=== PATIENT | male | born 1950 | race Caucasian/White ===

== ENCOUNTER 2017-05-25 20:32 | Emergency (ER) | payer BC ==
[2017-05-25] MEDS ORDERED: Sodium Chloride 0.9% 1,000 ML IV SCH (23:00)
[2017-05-25] MEDS ORDERED: Piperacillin/Tazobactam 3.375 GM in Sodium Chloride 0.9% 100 ML IV SCH (23:00)
[2017-05-25] MEDS ORDERED: Piperacillin/Tazobactam 3.375 GM in Sodium Chloride 0.9% 100 ML IV ONE (23:12)
[2017-05-25] MEDS ORDERED: Clindamycin Phosphate 600 MG in Dextrose 5% in Water 50 ML IV ONE ×2 (23:21)
[2017-05-25 23:35] VITALS: BP 146/94
[2017-05-25] MEDS ORDERED: Clindamycin Phosphate 600 MG/4 ML SDV ONE (23:46)
--- NOTE | 2017-05-26 08:14 | ER ---
HISTORY OF PRESENT ILLNESS: A 66-year-old male who comes in with his with complaints of swelling and redness, as well as drainage, on his left foot that is getting worse. The patient was seen here in the clinic on Monday for a biopsy of his left leg just below the knee for questionable vasculitis, and he tells me that the doctor never really looked at his foot. He was not having much more symptoms at that time. The patient was started on Augmentin and prednisone, after the biopsy was done. He states, over the last couple of days, his symptoms have gotten worse. He is noticing a bad odour. The patient is not sure what to do. 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 The patient tells me he has very little feeling in either foot. He also has history of coronary artery disease. OBJECTIVE: GENERAL APPEARANCE: The patient is awake, alert, pleasant, and talkative. No obvious distress. VITAL SIGNS: Reviewed. He is currently afebrile. Pulse is 79, blood pressure 143/95. EXTREMITIES: Examining the left foot reveals significant swelling of the distal half of the foot. The foot is erythematous. There is a break in the skin involving the web space between the great toe and the second toe that carries through to the sole of the foot, and he has another opening involving the forefoot area proximal to the great toe. The lesions are weeping. It is quite odorous. The midfoot area is warm to touch. Light palpation around the wound sites reveals there is some mild crepitus present. The patient is not having any pain with palpation of the areas today. LAB AND X-RAYS: X-ray of the foot is obtained. There are some pockets of gas, which is a concern for gas gangrene. I am seeing just subtle of changes involving the great toe, which could be arthritis or could be early stage osteomyelitis. Dz: 1) Cellulitis left foot. 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 PLAN: At this point, I consulted with Kendall res habilitation assistant physician, who reviewed the x-rays plus pictures of the patient's foot and agrees there is obvious concern for gas gangrene here, and the patient needs to be transferred immediately for a surgical consult, as well as being started on additional antibiotics given IV. At this point, I consulted with Dr. Valdivia, hospitalist from [facility] in [place], who accepted the patient. He will be transferred by a fixed-wing aircraft, I believe, at this time. We will give the patient 1 dose of Zosyn and 1 dose of vancomycin IV. His left foot was covered with a pressure dressing and kept elevated while at our facility. I will dictate an addendum after the patient has left our facility. DOLORES/DES /[id number] MTDD
--- NOTE | 2017-05-26 10:08 | CR ---
DATE OF SERVICE: 05/25/17 CLINICAL DATA: infection. Possible Osteo. LEFT FOOT: There is marked soft tissue swelling of the first toe and adjacent to the metacarpophalangeal joint of the first toe. There is also gas density within the superficial soft tissues medial to the MP joint of the first toe consistent with a superficial ulceration or soft tissue emphysema. An infectious process is suspected. No lytic or blastic bone lesions. There are mild osteoarthritic changes involving multiple joints. No radiodense foreign bodies. [id number] [facility]
== END 2017-05-26 00:20 ==
LOC: LB.ED 20:32
DX: L03.116 Cellulitis of left lower limb (principal)
CPT/HCPCS: 73630; 87070; 87077; 87186; 87205; 96365; 96368; 97161; 97597; 99284; A0425; A0429; J3370; J7040; J7050

== ENCOUNTER → 2019-05-09 | Outpatient (CLI) | payer MEDICARE, BC ==
--- NOTE | 2019-05-09 17:24 | CR ---
Date of Service: 05/09/19 Clinical Data: S81.802S LEFT FOOT: Comparison is made to a prior exam dated 07/14/17. 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 No change in appearance from the prior exam. [id number] [facility]
== END ==
LOC: LB.DI 09:47
PROVIDERS: ATTEND Podiatrist Foot & Ankle Surgery
DX: S81.802S Unspecified open wound, left lower leg, sequela (principal); X58.XXXS Exposure to other specified factors, sequela; Z89.422 Acquired absence of other left toe(s)
CPT/HCPCS: 73630-LT

== ENCOUNTER 2020-02-05 08:47 | Emergency (ER) | payer MEDICARE, BC ==
[2020-02-05] MEDS ORDERED: Sodium Chloride 0.9% 10 ML Syringe FLUSH PRN (09:02)
--- NOTE | 2020-02-05 09:40 | EDM.PDOC ---
ED HPI GENERAL MEDICAL PROBLEM - General Chief Complaint: Abdominal Pain Stated Complaint: ABD PAIN Time Seen by Provider: 02/05/20 09:10 Source of Information: Reports: Patient History Limitations: Reports: No Limitations - History of Present Illness INITIAL COMMENTS - FREE TEXT/NARRATIVE: Onset of diffuse abdominal pain since Monday since moving to lower abdomen. Patient states he had diarrhea Monday and Monday, took imodium and that stopped the diarrhea. No BM since Monday. Decreased appetite, but thinks he has been drinking adequate amounts of water. Pain increased when lying down and improves with sitting up. Denies any CP, SOB, Blood in stools, N/V/D, CVA tenderness, urinary symptoms. He has not tried any OTC medications for the pain. It has been a constant pain, but patient is pain free since arriving in the ED. Patient was treated in November for pneumonia with clinamycin, levaquin and augmentin. Onset Date: 02/02/20 Duration: Constant Location: Reports: Abdomen Quality: Reports: Ache Severity: Mild Improves with: Reports: Other (sitting) Worsens with: Reports: Other (lying flat) Associated Symptoms: Reports: No Other Symptoms Bilateral Middle Abdominal Pain Score (Numeric/FACES): 4 - Related Data Allergies Allergy/AdvReac Type Severity Reaction Status Date / Time No Known Allergies Allergy Verified 02/05/20 08:56 Home Meds: Home Meds Aspirin 81 mg PO DAILY 05/25/17 [History] Clopidogrel [Plavix] 75 mg PO DAILY 05/25/17 [History] Metoprolol Succinate [Toprol XL] 200 mg PO DAILY 05/25/17 [History] atorvaSTATin [Lipitor] 80 mg PO BEDTIME 05/25/17 [History] Omeprazole 20 mg PO DAILY 12/12/19 [History] Famotidine 40 mg PO BID 02/05/20 [History] metroNIDAZOLE [Metronidazole] 500 mg PO TID 10 Days #30 tablet 02/05/20 [Rx] Past Medical History HEENT History: Reports: Impaired Vision Cardiovascular History: Reports: High Cholesterol, Hypertension, NH, Stents Other Cardiovascular History: Coronary Atherosclerosis Respiratory History: Reports: Pneumonia, Recurrent, Other (See Below) Other Respiratory History: SOB r/t new dx of pneumonia Gastrointestinal History: Reports: GERD Other Genitourinary History: Elevated PSA, Erectile Dysfunction Neurological History: Reports: Other (See Below) Other Neuro History: "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 Endocrine/Metabolic History: Reports: Obesity/BMI 30+ Dermatologic History: Reports: Other (See Below) Other Dermatologic History: Open wounds to L foot, unsure of origin/cause at this time - Past Surgical History Cardiovascular Surgical History: Reports: Coronary Artery Stent Social & Family History - Family History Family Medical History: Noncontributory Oncologic: Reports: Breast - Tobacco Use Smoking Status *Q: Never Smoker - Caffeine Use Caffeine Use: Reports: Coffee - Alcohol Use Days Per Week of Alcohol Use: 7 Number of Drinks Per Day: 1 Total Drinks Per Week: 7 - Recreational Drug Use Recreational Drug Use: No ED ROS GENERAL - Review of Systems Review Of Systems: See Below Constitutional: Reports: No Symptoms HEENT: Reports: No Symptoms Respiratory: Reports: No Symptoms Cardiovascular: Reports: No Symptoms Endocrine: Reports: No Symptoms GI/Abdominal: Reports: Abdominal Pain : Reports: No Symptoms Musculoskeletal: Reports: No Symptoms Skin: Reports: No Symptoms Neurological: Reports: Pre-Existing Deficit (bilateral feet toes amputation, BLE neuropathy) Psychiatric: Reports: No Symptoms Hematologic/Lymphatic: Reports: No Symptoms Immunologic: Reports: No Symptoms ED EXAM, GI/ABD - Physical Exam Exam: See Below Exam Limited By: No Limitations General Appearance: Alert, No Apparent Distress Head: Atraumatic Neck: Normal Inspection, Non-Tender, Full Range of Motion Respiratory/Chest: No Respiratory Distress, Lungs Clear, Normal Breath Sounds, Chest Non-Tender Cardiovascular: Normal Peripheral Pulses, No Edema, No JVD, No Murmur, Tachycardia GI/Abdominal Exam: Normal Bowel Sounds, Soft, Tender (Male) Exam: Hernia (known hiatial hernia per patient) Back Exam: Normal Inspection, Full Range of Motion. No: CVA Tenderness (R), CVA Tenderness (L) Extremities: Normal Inspection, Non-Tender, No Pedal Edema Neurological: Alert, Oriented, Sensory/Motor Deficit (BLE at baseline) Psychiatric: Normal Affect, Normal Mood Skin Exam: Warm, Dry, Intact Lymphatic: No Adenopathy Course - Vital Signs Last Recorded V/S: Last Vital Signs Temp 98.8 F 02/05/20 09:43 Pulse 93 02/05/20 10:59 Resp 18 02/05/20 10:59 BP 128/83 02/05/20 10:59 Pulse Ox 94 L 02/05/20 10:59 - Orders/Labs/Meds Orders: Active Orders 24 hr Category Date Time Status EKG Documentation Completion [RC] ASDIRECTED Care 02/05/20 09:29 Active Abdomen Pelvis wo Cont [CT] Stat Exams 02/05/20 09:24 Taken COMPREHENSIVE METABOLIC PN,CMP [CHEM] Stat Lab 02/05/20 09:01 Ordered LIPASE [CHEM] Stat Lab 02/05/20 09:25 Ordered UA RFX ARNOLD AND CULT IF INDIC [URIN] Stat Lab 02/05/20 09:01 Ordered Diatrizoate Elaine/Diatrizoate Na [Gastrografin 37%] Med 02/05/20 10:45 Ordered 30 ml PO . DIRECTED Sodium Chloride 0.9% [Saline Flush] Med 02/05/20 09:02 Active 10 ml FLUSH ASDIRECTED PRN Peripheral IV Insertion Adult [OM.PC] Routine Oth 02/05/20 09:02 Ordered Medication Orders Diatrizoate Meglum/Diatrizoate Sod (Gastrografin 37%) 30 ml PO . DIRECTED JESSICA Sodium Chloride (Saline Flush) 10 ml FLUSH ASDIRECTED PRN PRN Reason: Keep Vein Open Labs: Laboratory Tests 02/05/20 02/05/20 02/05/20 Range/Units 09:22 09:29 09:57 WBC 14.3 H D (4.0-11.0) K/uL RBC 5.22 (4.50-6.50) M/uL Hgb 18.1 H* (13.0-18.0) g/dL Hct 50.0 (40.0-54.0) % MCV 96 (76-96) fL MCH 34.7 H (27.0-32.0) pg MCHC 36.2 H (31.0-35.0) g/dL RDW 13.3 (11.0-16.0) % Plt Count 163 (150-400) K/uL MPV 9.7 (6.0-10.0) fL Neut % (Auto) [place]er Lymph % (Auto) [place] Puller [place] % (Auto) [place] Eos % (Auto) [place] Baso % (Auto) [place] Puller Neut # (Auto) [place] Lymph # (Auto) [place] Puller [place] # (Auto) [place] Puller Eos # (Auto) [place] Puller Baso # (Auto) [place] Puller Add Manual Diff Yes Neutrophils % (Manual) 76.0 H (45.0-70.0) % Lymphocytes % (Manual) 12.0 L (20.0-40.0) % Monocytes % (Manual) 10.0 (3.0-10.0) % Eosinophils % (Manual) 2.0 (1.0-5.0) % Platelet Estimate Adequate POC Sodium 134 L (136-145) mmol/L POC Potassium 3.4 L (3.5-5.1) mmol/L POC Chloride 98 (98-109) mmol/L POC BUN 8 (8-26) mg/dL POC Glucose 115 H (74-100) mg/dL Troponin I 0.010 (0.000-0.060) ng/mL Meds: Medications Generic Name Dose Route Start Last Admin Trade Name Freq PRN Reason Stop Dose Admin Diatrizoate Meglum/Diatrizoate Sod 30 ml 02/05/20 10:45 Gastrografin 37% PO . DIRECTED JESSICA Sodium Chloride 10 ml 02/05/20 09:02 Saline Flush FLUSH ASDIRECTED PRN Keep Vein Open Discontinued Medications Generic Name Dose Route Start Last Admin Trade Name Freq PRN Reason Stop Dose Admin Sodium Chloride 500 mls @ 999 mls/hr 02/05/20 09:44 02/05/20 09:46 Normal Saline IV 02/05/20 10:14 999 mls/hr .BOLUS ONE Administration Departure - Departure Time of Disposition: 11:55 Disposition: Home, Self-Care 01 Condition: Good Clinical Impression: C. difficile colitis, Diarrhea associated with pseudomembranous colitis Leukocytosis Qualifiers: Leukocytosis type: other Qualified Code(s): D72.828 - Other elevated white blood cell count - Discharge Information Prescriptions: metroNIDAZOLE [Metronidazole] 500 mg PO TID 10 Days #30 tablet Instructions: Clostridioides Difficile Infection, [id number], Clostridioides Difficile Test Referrals: PCP,None [Primary Care Provider] - Forms: ED Department Discharge, ED Return to Work/School Form Additional Instructions: Keep your appointment with Dr. Rey Monday. Start the Flagyl today and take as directed for the full 10 days, do not drink alcohol whil taking this medication. If you produce a watery stool, bring a sample in please. Return to ED for any increased or new concerning symptoms. Use a dedicated toilet at home and wash your hands well. Please increase fluid intake, if not able to tolerate oral liquids or feeling of dehydration, please return to ED or primary care doctor. Sepsis Event Note (ED) - Evaluation Sepsis Screening Result: No Definite Risk - Focused Exam Vital Signs: Vital Signs Temp Temp Pulse Resp BP Pulse Ox 02/05/20 10:59 93 18 128/83 94 L 02/05/20 09:43 98.8 F 100 18 105/100 H 93 L 02/05/20 09:02 98.8 F 98.8 F 18 150/104 H 98 - My Orders Last 24 Hours: My Active Orders 02/05/20 09:01 COMPREHENSIVE METABOLIC PN,CMP [CHEM] Stat UA RFX ARNOLD AND CULT IF INDIC [URIN] Stat 02/05/20 09:02 Sodium Chloride 0.9% [Saline Flush] 10 ml FLUSH ASDIRECTED PRN Peripheral IV Insertion Adult [OM.PC] Routine 02/05/20 09:24 Abdomen Pelvis wo Cont [CT] Stat 02/05/20 09:25 LIPASE [CHEM] Stat 02/05/20 09:29 EKG Documentation Completion [RC] ASDIRECTED 02/05/20 10:45 Diatrizoate Elaine/Diatrizoate Na [Gastrografin 37%] 30 ml PO . DIRECTED - Assessment/Plan Last 24 Hours: My Active Orders 02/05/20 09:01 COMPREHENSIVE METABOLIC PN,CMP [CHEM] Stat UA RFX ARNOLD AND CULT IF INDIC [URIN] Stat 02/05/20 09:02 Sodium Chloride 0.9% [Saline Flush] 10 ml FLUSH ASDIRECTED PRN Peripheral IV Insertion Adult [OM.PC] Routine 02/05/20 09:24 Abdomen Pelvis wo Cont [CT] Stat 02/05/20 09:25 LIPASE [CHEM] Stat 02/05/20 09:29 EKG Documentation Completion [RC] ASDIRECTED 02/05/20 10:45 Diatrizoate Elaine/Diatrizoate Na [Gastrografin 37%] 30 ml PO . DIRECTED Plan: Unable to run creatinine due to lab machine broken. Will proceed with oral contrast only for CT. Patient remains pain free. POC guiac is positive for blood.
[2020-02-05] MEDS: Sodium Chloride 0.9% 500 ML IV ONE (09:46)
[2020-02-05] MEDS ORDERED: Diatrizoate Meglumine/Diatrizoate Sodium 37% 30 ML Bottle PO SCH (10:45)
[2020-02-05 11:00] VITALS: BP 128/83; PULSE 93
--- NOTE | 2020-02-06 08:46 | CT ---
Date of Service: 02/05/20 Clinical Data: lower abd pain ABDOMEN AND PELVIC CT: Multislice acquisition through the abdomen and pelvis with oral, but without IV contrast was performed. No priors. There are emphysematous changes in both lower lungs with atelectatic changes in both lung bases. The heart size is normal. There are coronary artery calcifications. There is a small hiatal hernia. The liver is prominent in size. There is diffuse fatty infiltration in the liver. It does have slightly lobulated contour suggesting the possibility of sclerosis. No focal hepatic lesions. The gallbladder appears normal. No pericholecystic fluid. The spleen appears normal. The pancreas appears normal. The right and left adrenals appear normal. There is a small nonobstructing renal calculus on the right. The right and left kidneys otherwise appear normal. No hydronephrosis or hydroureter. The bladder is partially fluid-filled. It appears normal. There is diffuse mural thickening throughout the colon. No evidence of obstruction. The small bowel appears normal. No free air. No free fluid. No dilated loops of bowel. No adenopathy. No aortic aneurysm. IMPRESSION: Diffuse mural thickening throughout the colon. Colitis and other infectious or inflammatory processes should be considered. Other findings as discussed above. [id number] [facility]
== END 2020-02-05 11:50 | disposition home or self-care (01) ==
LOC: LB.ED 08:47
DX: A04.72 Enterocolitis due to Clostridium difficile, not specified as recurrent (principal); D72.828 Other elevated white blood cell count; E78.00 Pure hypercholesterolemia, unspecified; I10 Essential (primary) hypertension; I25.2 Old myocardial infarction; K21.9 Gastro-esophageal reflux disease without esophagitis; E66.9 Obesity, unspecified; Z95.5 Presence of coronary angioplasty implant and graft; Z79.82 Long term (current) use of aspirin; Z79.02 Long term (current) use of antithrombotics/antiplatelets; Z79.899 Other long term (current) drug therapy
CPT/HCPCS: 36415; 74176; 80047; 80053; 83690; 84484; 85025; 93005; 99284; J7040; Q9963

== ENCOUNTER 2020-07-03 10:29 | Day surgery (SDC) | payer MEDICARE, BC ==
[~2020-07-03 10:29] MED LIST: Metoclopramide 10 MG/2 ML SDV IV PRN; Sodium Chloride 0.9% 1,000 ML IV SCH
[2020-07-03] MEDS ORDERED: Propofol 1,000 MG/100 ML SDV ONE (13:45)
[2020-07-03 14:33] VITALS: BP 172/99; PULSE 88
--- NOTE | 2020-07-03 15:08 | OR ---
DATE OF OPERATION: 07/03/2020 SURGEON: Oscar Hernadez MD PREOPERATIVE DIAGNOSIS: Diarrhea. POSTOPERATIVE DIAGNOSIS: Diarrhea. PROCEDURE: Colonoscopy. ANESTHESIA: MAC. ESTIMATED BLOOD LOSS: None. COMPLICATIONS: None. INDICATION FOR THE PROCEDURE: The patient is a 69-year-old male who earlier in the year had some bright red blood per rectum as well as chronic diarrhea. This was back in September of 2019, that has all since resolved as of October. He otherwise denies any diarrhea. Denies any bright red blood per rectum at this time. He is here today for colonoscopy. DESCRIPTION OF PROCEDURE: Informed consent was obtained with the patient. The patient was taken to the operating room, placed on table in left lateral decubitus position. Monitored anesthesia care was administered. Digital rectal exam performed, it was normal. Colonoscope was then advanced through the anus directed towards the cecum. Cecum was reached and identified by appendiceal orifice and ileocecal valve. Colonoscope was then slowly withdrawn. No polyps. No masses. No areas of ischemia or inflammation identified. Rectum was also otherwise unremarkable. Colonoscope was then withdrawn. FINDINGS: Normal colonoscopy. RECOMMENDATIONS: I would recommend repeat screening colonoscopy in 10 years. MICHELLE/DES /[id number]
== END 2020-07-03 15:30 | disposition home or self-care (01) ==
LOC: LB.SDS 10:29
PROVIDERS: ATTEND Surgery
DX: R19.7 Diarrhea, unspecified (principal); K92.1 Melena; I25.2 Old myocardial infarction; I10 Essential (primary) hypertension
CPT/HCPCS: J2704; J7030

== ENCOUNTER 2021-06-11 09:55 | Emergency (ER) | payer MEDICARE, BC ==
[2021-06-11 11:02] VITALS: BP 149/84
--- NOTE | 2021-06-11 11:19 | EDM.PDOC ---
ED HPI GENERAL MEDICAL PROBLEM - General Chief Complaint: Respiratory Problem Stated Complaint: SHORTNESS OF BREATH Time Seen by Provider: 06/11/21 11:05 Source of Information: Reports: Patient History Limitations: Reports: No Limitations - History of Present Illness INITIAL COMMENTS - FREE TEXT/NARRATIVE: 70-year-old male presents to the ED complaining of shortness of breath. He had a gradual onset of his shortness of breath starting on Monday where he noticed that he was getting winded when he would walk around the house. Rest makes it better. He describes the sensation as a tightness in his chest makes it hard to breathe. No radiation of this tightness. He is unable to give me a number on the pain scale given that it is not pain. Positive for: Previous VA, headache, fatigue, just cannot get enough air. Negative for: Chest pain, syncope/near syncope, dizzy lightheaded, trauma, diarrhea or constipation, decreased oral intake, nausea vomiting, blurred vision, difficulty swallowing, red swollen joints, rash, fever. - Related Data Allergies Allergy/AdvReac Type Severity Reaction Status Date / Time No Known Allergies Allergy Verified 06/11/21 10:20 Home Meds: Home Meds Aspirin 81 mg PO DAILY 05/25/17 [History] Clopidogrel [Plavix] 75 mg PO DAILY 05/25/17 [History] Metoprolol Succinate [Toprol XL] 200 mg PO DAILY 05/25/17 [History] atorvaSTATin [Lipitor] 80 mg PO BEDTIME 05/25/17 [History] Omeprazole 20 mg PO DAILY 12/12/19 [History] Past Medical History HEENT History: Reports: Impaired Vision Cardiovascular History: Reports: High Cholesterol, Hypertension, [place], Stents Other Cardiovascular History: Coronary Atherosclerosis Respiratory History: Reports: Pneumonia, Recurrent, Other (See Below) Other Respiratory History: SOB r/t new dx of pneumonia Gastrointestinal History: Reports: GERD Other Genitourinary History: Elevated PSA, Erectile Dysfunction Musculoskeletal History: Reports: Other (See Below) Other Musculoskeletal History: 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, amputated toes bilat Neurological History: Reports: Other (See Below) Other Neuro History: "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 Endocrine/Metabolic History: Reports: Obesity/BMI 30+ Dermatologic History: Reports: Other (See Below) Other Dermatologic History: Open wounds to L foot, unsure of origin/cause at this time - Past Surgical History Cardiovascular Surgical History: Reports: Coronary Artery Stent Social & Family History - Family History Family Medical History: No Pertinent Family History Oncologic: Reports: Breast - Tobacco Use Tobacco Use Status *Q: Former Tobacco User Used Tobacco, but Quit: Yes Month/Year Tobacco Last Used: 1979 Second Hand Smoke Exposure: No - Caffeine Use Caffeine Use: Reports: Coffee, Tea - Alcohol Use Days Per Week of Alcohol Use: 6 Number of Drinks Per Day: 2 Total Drinks Per Week: 12 - Recreational Drug Use Recreational Drug Use: No ED ROS GENERAL - Review of Systems Review Of Systems: Comprehensive ROS is negative, except as noted in HPI. ED EXAM, GENERAL - Physical Exam Exam: See Below Free Text/Narrative:: ABC intact. No apparent distress. No obvious trauma. Speaking in full sentences. Alert and oriented x3, GCS 456. Exam Limited By: No Limitations General Appearance: Alert, WD/WN, No Apparent Distress Eye Exam: Bilateral Eye: EOMI, PERRL Ears: Normal External Exam, Normal Canal, Hearing Grossly Normal, Normal TMs Ear Exam: Bilateral Ear: Auricle Normal, Canal Normal, TM normal Nose: Normal Inspection, Normal Mucosa, No Blood, Clear Rhinorrhea Throat/Mouth: Normal Inspection, Normal Lips, Normal Gums, Normal Oropharynx, Normal Voice, No Airway Compromise, Other (Evidence of mild postnasal drip) Head: Atraumatic, Normocephalic. No: Facial Tenderness, Sinus Tenderness Respiratory/Chest: No Respiratory Distress, Lungs Clear, Normal Breath Sounds, No Accessory Muscle Use, Chest Non-Tender Cardiovascular: Normal Peripheral Pulses, Regular Rate, Rhythm, No Edema, No Gallop, No JVD, No Murmur, No Rub GI/Abdominal: Soft, Non-Tender, Distended (Patient normal body habitus) Back Exam: Normal Inspection Extremities: Normal Inspection, No Pedal Edema Neurological: Alert, Oriented, Normal Cognition Psychiatric: Normal Affect, Normal Mood Skin Exam: Warm, Dry, Intact, Normal Color, No Rash #1 Interpretation EKG Date: 06/11/21 (Normal sinus rhythm with infrequent ectopy. No ST elevation or depression/this is not a STEMI, T wave abnormality flat or inverted in multiple leads when compared to previous same morphology just a little bit more amplitude) Course - Vital Signs Last Recorded V/S: Last Vital Signs Temp 97.7 F 06/11/21 10:59 Pulse 93 06/11/21 11:33 Resp 24 H 06/11/21 10:59 BP 149/84 H 06/11/21 10:59 Pulse Ox 90 L 06/11/21 10:59 - Orders/Labs/Meds Orders: Active Orders 24 hr Category Date Time Status Chest 2V [CR] Stat Exams 06/11/21 11:06 Ordered Labs: Laboratory Tests 06/11/21 06/11/21 06/11/21 Range/Units 10:15 11:11 11:15 WBC 7.0 D (4.0-11.0) K/uL RBC 4.83 (4.50-6.50) M/uL Hgb 16.5 (13.0-18.0) g/dL Hct 47.3 (40.0-54.0) % MCV 98 H (76-96) fL MCH 34.2 H (27.0-32.0) pg MCHC 34.9 (31.0-35.0) g/dL RDW 13.5 (11.0-16.0) % Plt Count 124 L D (150-400) K/uL MPV 9.6 (6.0-10.0) fL Neut % (Auto) 62.2 (45.0-70.0) % Lymph % (Auto) 17.1 L (20.0-40.0) % [place] % (Auto) 16.4 H (3.0-10.0) % Eos % (Auto) 3.7 (1.0-5.0) % Baso % (Auto) 0.6 H (0.0-0.5) % Neut # (Auto) 4.34 (2.00-7.50) K/uL Lymph # (Auto) 1.19 L (1.50-4.00) K/uL Ed[place]on # (Auto) 1.14 H (0.20-0.80) K/uL Eos # (Auto) 0.26 (0.04-0.40) K/uL Baso # (Auto) 0.04 (0.02-0.10) K/uL D-Dimer, Quantitative 160 (0-400) ng/mL Sodium (136-145) mmol/L Potassium (3.5-5.1) mmol/L Chloride (98-107) mmol/L Carbon Dioxide (21.0-32.0) mmol/L Anion Gap (5.0-15.0) mmol/L BUN (8-26) mg/dL Creatinine (0.70-1.30) mg/dL Est Cr Clr Drug Dosing mL/min Estimated GFR (MDRD) (>60) MLS/MIN BUN/Creatinine Ratio (6-25) Glucose (74-100) mg/dL Calcium (8.5-10.1) mg/dL Troponin I (0.000-0.060) ng/mL SARS CoV-2 RNA Rapid BHAVANA Negative 06/11/21 06/11/21 Range/Units 11:15 11:15 WBC (4.0-11.0) K/uL RBC (4.50-6.50) M/uL Hgb (13.0-18.0) g/dL Hct (40.0-54.0) % MCV (76-96) fL MCH (27.0-32.0) pg MCHC (31.0-35.0) g/dL RDW (11.0-16.0) % Plt Count (150-400) K/uL MPV (6.0-10.0) fL Neut % (Auto) (45.0-70.0) % Lymph % (Auto) (20.0-40.0) % [place] % (Auto) (3.0-10.0) % Eos % (Auto) (1.0-5.0) % Baso % (Auto) (0.0-0.5) % Neut # (Auto) (2.00-7.50) K/uL Lymph # (Auto) (1.50-4.00) K/uL Ed[place]on # (Auto) (0.20-0.80) K/uL Eos # (Auto) (0.04-0.40) K/uL Baso # (Auto) (0.02-0.10) K/uL D-Dimer, Quantitative (0-400) ng/mL Sodium 137 (136-145) mmol/L Potassium 4.0 (3.5-5.1) mmol/L Chloride 103 (98-107) mmol/L Carbon Dioxide 26.1 (21.0-32.0) mmol/L Anion Gap 11.9 (5.0-15.0) mmol/L BUN 14 (8-26) mg/dL Creatinine 0.86 (0.70-1.30) mg/dL Est Cr Clr Drug Dosing 84.88 mL/min Estimated GFR (MDRD) > 60 (>60) MLS/MIN BUN/Creatinine Ratio 16.3 (6-25) Glucose 125 H (74-100) mg/dL Calcium 8.9 (8.5-10.1) mg/dL Troponin I < 0.017 D (0.000-0.060) ng/mL SARS CoV-2 RNA Rapid BHAVANA Meds: Medications Discontinued Medications Generic Name Dose Route Start Last Admin Trade Name Freq PRN Reason Stop Dose Admin Albuterol/Ipratropium 3 ml 06/11/21 11:32 06/11/21 11:33 Albuterol/Ipratropium 3.0-0.5 Mg/3 Ml Neb Soln NEB 06/11/21 11:33 3 ml ONETIME ONE Administration Albuterol/Ipratropium Confirm 06/11/21 11:41 Albuterol/Ipratropium 3.0-0.5 Mg/3 Ml Neb Soln Administered 06/11/21 11:42 Dose 3 ml .ROUTE .STK-MED ONE Departure - Departure Time of Disposition: 12:15 Disposition: Home, Self-Care 01 Condition: Good Clinical Impression: Shortness of breath Acute bronchitis Qualifiers: Bronchitis organism: unspecified organism Qualified Code(s): J20.9 - Acute bronchitis, unspecified - Discharge Information *PRESCRIPTION DRUG MONITORING PROGRAM REVIEWED*: No *COPY OF PRESCRIPTION DRUG MONITORING REPORT IN PATIENT EDWAR: No (And is known to wear it while what were treating problem is that the urine was one 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 Able to do third neb if needed Return to ER if SOB increases and not better after duonebs, fever, chest pain and lethargy. Follow up with Dr Rey Sepsis Event Note (ED) - Evaluation Sepsis Screening Result: No Definite Risk - Focused Exam Vital Signs: Vital Signs Temp Pulse Resp BP Pulse Ox 06/11/21 11:33 93 06/11/21 10:59 97.7 F 72 24 H 149/84 H 90 L - My Orders Last 24 Hours: My Active Orders 06/11/21 11:06 Chest 2V [CR] Stat - Assessment/Plan Last 24 Hours: My Active Orders 06/11/21 11:06 Chest 2V [CR] Stat Assessment:: 1. Shortness of breath 2. Low oxygen saturation 3. Fatigue 70-year-old male with a history of VA who presents for evaluation of shortness of breath. Signs and symptoms consistent with acute bronchitis. A broad differential was considered including foreign body, COPD, viral induced reactive airway disease, pneumothorax, cardiac equivalent, allergic pneumonia, pneumonia, bronchitis etc. Chest x-ray was negative for consolidation or foreign object. Patient feels improved after the above interventions were done here in the ED. There are no signs of point any other serious etiology including those mentioned above especially acute coronary syndrome. I doubt that ACS given the normal EKG without ST elevation or depression, negative troponin after 4 days. No indication for hospitalization at this point including no hypoxia, no marked increase in respiratory rate, minimal to no retractions. Supportive outpatient management is therefore indicated. Given no increased sputum production, no increase in white blood cell count, no antibiotics are indicated at this time. Advise close follow-up with primary care physician and return if increased difficulty breathing wheezing, fever greater than 102 or develops lethargy. Using internal facility scheduling to see primary care provider on the or of next week. Plan: Airway breathing circulation, history, exam, labs, chest x-ray, EKG, DuoNeb, working diagnosis acute bronchitis, patient has been ambulatory prescription for DuoNeb and nebulizer awaiting him at [facility] pharmacy, patient education/ shared decision-making, all questions were answered to the patient and his satisfaction patient understood treatment plan and agreed to same. Patient to follow-up with Dr. Rey on June 14 or .
[2021-06-11] MEDS: Albuterol/Ipratropium 3.0-0.5 MG/3 ML Neb Soln NEB ONE (11:33)
[2021-06-11] MEDS: Albuterol/Ipratropium 3.0-0.5 MG/3 ML Neb Soln ONE (11:41)
[2021-06-11 11:50] VITALS: PULSE 93
--- NOTE | 2021-06-13 19:20 | CR ---
Date of Service: 06/11/21 Clinical Data: SOB PA AND LATERAL CHEST: Comparison is made to a prior exam dated 12/31/19. The heart size is normal. The aorta is calcified and ectatic. The pulmonary vasculature does appear to be mildly prominent with some cephalization of flow suggesting mild pulmonary venous congestion. There are scattered reticular opacities throughout both lungs. The lungs are otherwise clear. No areas of consolidation. No pneumothorax. No pleural effusions. [id number] MTDD
== END 2021-06-11 12:04 | disposition home or self-care (01) ==
LOC: LB.ED 09:55
DX: J20.9 Acute bronchitis, unspecified (principal); E78.00 Pure hypercholesterolemia, unspecified; I10 Essential (primary) hypertension; I25.2 Old myocardial infarction; K21.9 Gastro-esophageal reflux disease without esophagitis; E66.9 Obesity, unspecified; Z68.34 Body mass index [BMI] 34.0-34.9, adult; Z95.5 Presence of coronary angioplasty implant and graft; Z79.82 Long term (current) use of aspirin; Z79.02 Long term (current) use of antithrombotics/antiplatelets; Z79.899 Other long term (current) drug therapy; Z87.891 Personal history of nicotine dependence; Z20.822 Contact with and (suspected) exposure to COVID-19
CPT/HCPCS: 36415; 71046; 80048; 84484; 85025; 85379; 93005; 99285-25; J7620-GY; U0002

== ENCOUNTER 2021-06-21 09:34 | Emergency (ER) | payer MEDICARE, BC ==
[2021-06-21 10:03] VITALS: BP 153/97; PULSE 79
--- NOTE | 2021-06-21 10:57 | EDM.PDOC ---
ED HPI GENERAL MEDICAL PROBLEM - General Chief Complaint: Respiratory Problem Stated Complaint: SOB Time Seen by Provider: 06/21/21 10:30 Source of Information: Reports: Patient, Custodial Records History Limitations: Reports: No Limitations - History of Present Illness INITIAL COMMENTS - FREE TEXT/NARRATIVE: This patient presents to the emergency department for evaluation of difficulty breathing. He states he has been ill since June 07 with respiratory symptoms. He was seen in the ER for this, had a Covid test that was negative and discharged home with instructions to self care for a viral illness. He was rechecked in the clinic last week and started on Levaquin after a chest x-ray was done. He states that he has not any better on the Levaquin. He was also given an albuterol nebulizer to use at home which she states has not helped either. He continues to cough, have nasal drainage, and have difficulty breathing. He does watch his saturations at home and states his saturations have been between 88 and 92% on room air. He has not had a fever or body aches but states that he has been using Naprosyn regularly. He is drinking lots of fluids but does have a decrease in his appetite. He has had no vomiting or diarrhea with this illness. He denies other concerns or complaints. - Related Data Allergies Allergy/AdvReac Type Severity Reaction Status Date / Time No Known Allergies Allergy Verified 06/21/21 09:59 Home Meds: Home Meds Aspirin 81 mg PO DAILY 05/25/17 [History] Clopidogrel [Plavix] 75 mg PO DAILY 05/25/17 [History] Metoprolol Succinate [Toprol XL] 200 mg PO DAILY 05/25/17 [History] atorvaSTATin [Lipitor] 80 mg PO BEDTIME 05/25/17 [History] Omeprazole 20 mg PO DAILY 12/12/19 [History] predniSONE [Prednisone] 40 mg PO DAILY 5 Days #10 tablet 06/21/21 [Rx] Past Medical History HEENT History: Reports: Impaired Vision Cardiovascular History: Reports: High Cholesterol, Hypertension, [place], Stents Other Cardiovascular History: Coronary Atherosclerosis Respiratory History: Reports: Pneumonia, Recurrent, Other (See Below) Other Respiratory History: SOB r/t new dx of pneumonia Gastrointestinal History: Reports: GERD Other Genitourinary History: Elevated PSA, Erectile Dysfunction Musculoskeletal History: Reports: Other (See Below) Other Musculoskeletal History: 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, amputated toes bilat Neurological History: Reports: Other (See Below) Other Neuro History: "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 Endocrine/Metabolic History: Reports: Obesity/BMI 30+ Dermatologic History: Reports: Other (See Below) Other Dermatologic History: Open wounds to L foot, unsure of origin/cause at this time - Past Surgical History Cardiovascular Surgical History: Reports: Coronary Artery Stent Social & Family History - Family History Family Medical History: No Pertinent Family History Oncologic: Reports: Breast - Caffeine Use Caffeine Use: Reports: Coffee, Tea - Alcohol Use Days Per Week of Alcohol Use: 3 Number of Drinks Per Day: 3 Total Drinks Per Week: 9 - Recreational Drug Use Recreational Drug Use: No ED ROS GENERAL - Review of Systems Review Of Systems: Comprehensive ROS is negative, except as noted in HPI. ED EXAM, GENERAL - Physical Exam Exam: See Below Exam Limited By: No Limitations General Appearance: Alert, No Apparent Distress Eye Exam: Bilateral Eye: Normal Inspection, PERRL Ears: Normal External Exam, Normal Canal, Normal TMs Nose: Normal Inspection, Nasal Drainage Throat/Mouth: Normal Inspection, Inflammation. No: No Airway Compromise, Dysphagia Head: Atraumatic, Normocephalic Neck: Normal Inspection, Non-Tender, Full Range of Motion. No: Lymphadenopathy (R), Lymphadenopathy (L) Respiratory/Chest: No Respiratory Distress, Lungs Clear, Normal Breath Sounds, No Accessory Muscle Use Cardiovascular: Regular Rate, Rhythm Neurological: Alert, Oriented Psychiatric: Normal Affect Skin Exam: Warm, Dry Course - Vital Signs Last Recorded V/S: Last Vital Signs Temp 36.6 C 06/21/21 10:00 Pulse 79 06/21/21 10:00 Resp 20 06/21/21 10:00 BP 153/97 H 06/21/21 10:00 Pulse Ox 88 L 06/21/21 10:00 - Orders/Labs/Meds Labs: Laboratory Tests 06/21/21 Range/Units 09:58 SARS-CoV-2 RNA (BHAVANA) Negative (NEGATIVE) - Re-Assessments/Exams Free Text/Narrative Re-Assessment/Exam: This patient presents today for evaluation of cough and shortness of breath. History and clinical findings are most consistent with influenza A. He is nontoxic appearing but is mildly short of breath. In our setting he is saturating well on room air. He had a chest x-ray performed last week and was diagnosed with bronchitis. Tamiflu is not indicated for this patient today as he is outside the treatment window for this. I did suggest to him that he could stop his antibiotic if he felt it was not being helpful to him given that he has a viral process. I encouraged him to continue the albuterol nebs until he is established on prednisone. If they are not helping him after prednisone he can stop those as well. I did encourage him to finish the 5-day course of prednisone I am prescribing for him. He was continued encouraged to continue the supportive care he has been doing at home to include pain control, increase fluids and rest. He has an appointment for recheck in 1 week; he should return to the emergency department in the meantime should he get worse in any way. The patient was stable at the time of discharge. 06/21/21 11:00 Departure - Departure Time of Disposition: 11:00 Disposition: Home, Self-Care 01 Condition: Fair Clinical Impression: Influenza A - Discharge Information Prescriptions: predniSONE [Prednisone] 40 mg PO DAILY 5 Days #10 tablet Instructions: Influenza, Adult, [id number] Forms: ED Department Discharge Additional Instructions: Continue symptomatic care with plenty of fluids and [id number] pain medication for body aches or fever. Consider using a product such as Mucinex for the cough. Use the prednisone daily as prescribed and try the albuterol nebulizer along with the prednisone at least one additional day. If you think it does not work for you after that, stop using the albuterol nebulizer but do finish the prednisone. Keep your appointment in the clinic that is already scheduled for next Monday. This is a will be a perfect time for a recheck. If you get worse in any way in the meantime, come back to the ER. It was a pleasure to meet you, I hope you get well quickly! Sepsis Event Note (ED) - Evaluation Sepsis Screening Result: No Definite Risk - Focused Exam Vital Signs: Vital Signs Temp Temp Pulse Resp BP Pulse Ox 06/21/21 10:00 36.6 C 36.6 C 79 20 153/97 H 88 L
== END 2021-06-21 11:11 | disposition home or self-care (01) ==
LOC: LB.ED 09:34
DX: J10.1 Influenza due to other identified influenza virus with other respiratory manifestations (principal); E78.00 Pure hypercholesterolemia, unspecified; I10 Essential (primary) hypertension; I25.2 Old myocardial infarction; I25.10 Atherosclerotic heart disease of native coronary artery without angina pectoris; K21.9 Gastro-esophageal reflux disease without esophagitis; E66.9 Obesity, unspecified; Z68.34 Body mass index [BMI] 34.0-34.9, adult; Z79.82 Long term (current) use of aspirin; Z79.02 Long term (current) use of antithrombotics/antiplatelets; Z79.899 Other long term (current) drug therapy; Z20.822 Contact with and (suspected) exposure to COVID-19
CPT/HCPCS: 87804; 99284; U0002

== ENCOUNTER 2021-08-23 08:45 | Day surgery (SDC) | payer MEDICARE, BC ==
[~2021-08-23 08:45] MED LIST changes: +Acetaminophen/HYDROcodone 325-5 MG Tab PO PRN; +Lactated Ringers 1,000 ML IV SCH; -Metoclopramide 10 MG/2 ML SDV IV PRN; -Sodium Chloride 0.9% 1,000 ML IV SCH; +Sodium Chloride 0.9% 10 ML Syringe FLUSH PRN
[2021-08-23] MEDS ORDERED: ceFAZolin 1 GM Vial ONE (08:51)
[2021-08-23] MEDS ORDERED: ceFAZolin 1 GM in Sodium Chloride 0.9% 50 ML IV SCH (09:45)
[2021-08-23] MEDS ORDERED: Propofol 200 MG/20 ML SDV ONE (11:30)
[2021-08-23] MEDS ORDERED: Lidocaine 0.5% 50 ML SDV ONE (11:30)
[2021-08-23] MEDS ORDERED: Midazolam 1 MG/ML 2 ML SDV ONE (11:30)
[2021-08-23 11:47] VITALS: BP 126/85; PULSE 62
== END 2021-08-23 12:55 | disposition home or self-care (01) ==
LOC: LB.SDS 08:45
PROVIDERS: ATTEND Orthopaedic Surgery
DX: G56.02 Carpal tunnel syndrome, left upper limb (principal); I10 Essential (primary) hypertension; I25.2 Old myocardial infarction; Z79.02 Long term (current) use of antithrombotics/antiplatelets; Z79.899 Other long term (current) drug therapy
CPT/HCPCS: A9270-GY; J0690; J2250; J2704; J7120

== ENCOUNTER 2021-10-18 08:51 | Day surgery (SDC) | payer MEDICARE, BC ==
[2021-10-18] MEDS: Lactated Ringers 1,000 ML IV SCH (09:36)
[2021-10-18] MEDS ORDERED: Lidocaine 0.5% 50 ML SDV ONE (10:00)
[2021-10-18] MEDS ORDERED: Propofol 200 MG/20 ML SDV ONE (10:00)
[2021-10-18] MEDS: ceFAZolin 1 GM Vial ONE (10:04)
[2021-10-18] MEDS: ceFAZolin 1 GM in Sodium Chloride 0.9% 50 ML IV ONE (10:28)
[2021-10-18 11:10] VITALS: BP 150/88; PULSE 59
== END 2021-10-18 11:45 | disposition home or self-care (01) ==
LOC: LB.SDS 08:51
PROVIDERS: ATTEND Orthopaedic Surgery
DX: G56.02 Carpal tunnel syndrome, left upper limb (principal); I10 Essential (primary) hypertension; I25.2 Old myocardial infarction; Z95.5 Presence of coronary angioplasty implant and graft
CPT/HCPCS: J0690; J2704; J7120

== ENCOUNTER 2021-12-21 11:00 | Emergency (ER) | payer MEDICARE, BC ==
[2021-12-21] MEDS ORDERED: Ketorolac 30 MG/ML SDV IM ONE (11:31)
[2021-12-21 11:34] VITALS: BP 150/92; PULSE 65
[2021-12-21] MEDS ORDERED: Ketorolac 30 MG/ML SDV ONE (11:46)
== END 2021-12-21 12:20 | disposition home or self-care (01) ==
LOC: LB.ED 11:00
DX: S49.91XA Unspecified injury of right shoulder and upper arm, initial encounter (principal); I10 Essential (primary) hypertension; E78.00 Pure hypercholesterolemia, unspecified; I25.2 Old myocardial infarction; K21.9 Gastro-esophageal reflux disease without esophagitis; Z79.899 Other long term (current) drug therapy; W22.8XXA Striking against or struck by other objects, initial encounter
CPT/HCPCS: 73030; 96372; 99282; 99283; J1885